=== PATIENT | female | born 1950 | race Two or more races ===

== ENCOUNTER 2018-03-06 09:43 | Outpatient (CLI) | payer OTHER ==
[~2018-03-06 09:43] MED LIST: MEDROLPACK PO; ZYRTEC10 MG PO
== END 2018-03-06 09:50 | disposition home or self-care (01) ==
LOC: SONOGRAMA 09:43
DX: E04.1 Nontoxic single thyroid nodule (principal)

== ENCOUNTER 2018-03-28 08:25 | Outpatient (CLI) | payer OTHER ==
[~2018-03-28] VITALS: Ht 162.6 cm; Wt 54.9 kg
== END 2018-03-28 08:45 | disposition home or self-care (01) ==
LOC: OFIC 805 08:25
DX: J32.8 Other chronic sinusitis (principal); R05 Cough; J34.89 Other specified disorders of nose and nasal sinuses

== ENCOUNTER 2018-05-02 08:28 | Outpatient (CLI) | payer OTHER ==
[~2018-05-02] VITALS: Ht 152.4 cm; Wt 54.9 kg
== END 2018-05-02 08:45 | disposition home or self-care (01) ==
LOC: OFIC 805 08:28
DX: J01.80 Other acute sinusitis (principal); J34.89 Other specified disorders of nose and nasal sinuses

== ENCOUNTER 2018-08-29 08:06 | Outpatient (CLI) | payer OTHER ==
[~2018-08-29] VITALS: Ht 152.4 cm; Wt 54.9 kg
== END 2018-08-29 08:20 | disposition home or self-care (01) ==
LOC: OFIC 805 08:06
DX: J32.8 Other chronic sinusitis (principal); R05 Cough; J34.89 Other specified disorders of nose and nasal sinuses

== ENCOUNTER 2019-02-27 08:05 | Outpatient (CLI) | payer OTHER ==
[~2019-02-27] VITALS: Ht 152.4 cm; Wt 54.9 kg
== END 2019-02-27 08:20 | disposition home or self-care (01) ==
LOC: OFIC 805 08:05
DX: T78.40XA Allergy, unspecified, initial encounter (principal); J32.8 Other chronic sinusitis; R05 Cough; J34.89 Other specified disorders of nose and nasal sinuses

== ENCOUNTER 2019-04-23 10:45 | Outpatient (CLI) | payer OTHER | END 2019-04-23 10:51 | disposition home or self-care (01) | LOC: RAD 501 10:45 | DX: M77.42 Metatarsalgia, left foot (principal) ==

== ENCOUNTER 2019-08-07 08:18 | Outpatient (CLI) | payer OTHER ==
[~2019-08-07] VITALS: Ht 152.4 cm; Wt 56.7 kg
== END 2019-08-07 13:49 | disposition home or self-care (01) ==
LOC: OFIC 805 08:18
DX: T78.49XA Other allergy, initial encounter (principal); J32.8 Other chronic sinusitis; J34.89 Other specified disorders of nose and nasal sinuses

== ENCOUNTER 2019-08-19 14:24 | Outpatient (CLI) | payer OTHER | END 2019-08-19 14:25 | disposition home or self-care (01) | LOC: TOM 14:24 | DX: J32.8 Other chronic sinusitis (principal) ==

== ENCOUNTER 2022-11-01 10:38 | Outpatient (CLI) | payer OTHER | END 2022-11-01 10:40 | disposition home or self-care (01) | LOC: RAD 10:38 | PROVIDERS: ATTEND Physical Medicine & Rehabilitation | DX: M25.562 Pain in left knee (principal) ==

== ENCOUNTER 2023-07-10 10:58 | Outpatient (CLI) | payer OTHER | END 2023-07-10 11:00 | disposition home or self-care (01) | LOC: RAD 10:58 | PROVIDERS: ATTEND Physical Medicine & Rehabilitation | DX: M75.101 Unspecified rotator cuff tear or rupture of right shoulder, not specified as traumatic (principal) ==

== ENCOUNTER 2023-12-18 10:18 | Outpatient (CLI) | payer OTHER | END 2023-12-18 10:22 | disposition home or self-care (01) | LOC: RAD 10:18 | PROVIDERS: ATTEND Podiatrist | DX: M79.671 Pain in right foot (principal) ==

== ENCOUNTER 2024-08-30 10:50 | Outpatient (CLI) | payer OTHER | END 2024-08-30 10:55 | disposition home or self-care (01) | LOC: RAD 10:50 | PROVIDERS: ATTEND Physical Medicine & Rehabilitation | DX: M54.59 Other low back pain (principal) ==

== ENCOUNTER → 2025-01-21 | Outpatient (CLI) | payer OTHER | END | disposition home or self-care (01) | LOC: RAD 11:38 | PROVIDERS: ATTEND Physical Medicine & Rehabilitation | DX: M54.6 Pain in thoracic spine (principal); M94.0 Chondrocostal junction syndrome [Tietze] ==